=== PATIENT | male | born 1940 | race Caucasian/White ===

== ENCOUNTER 2016-03-07 10:43 | Day surgery (SDC) | payer MEDICARE ==
[~2016-03-07 10:43] MED LIST: AMLO5TAB96 PO; ASPI-130 PO; ATOR20TA PO; ATRO OP; DICY10CA13 PO; DIFL0.0512 OP; LOSA25TA31 PO; MAGN500T4 PO; MELO15 PO; METO25 PO; NORC10TA2 PO; OMEP20TA39 PO; PRED-1 PO; PROBCAP4 PO; SMZ-800T PO; STOO100T PO; VIGA0.5D RIGHT EYE
[2016-03-07 11:13] VITALS: BP 153/95; PULSE 72; RESP 16; TEMP 98; O2SAT 98
[2016-03-07] MEDS ORDERED: METOPROLOL TARTRATE 25 MG TAB PO PRN (11:15)
[2016-03-07] MEDS ORDERED: INSULIN HUMAN REGULAR 1,000 UNITS/10 ML VIAL SQ PRN (11:15)
[2016-03-07] MEDS ORDERED: LACTATED RINGER'S 1000 ML IV SCH (11:15)
[2016-03-07] MEDS ORDERED: SODIUM CHLORID 0.9% 500 ML IV SCH (11:15)
[2016-03-07] MEDS ORDERED: CHLORHEXIDINE GLUCONATE 2 % 1 PACK (2 CLOTHS) TOP SCH (11:15)
[2016-03-07] MEDS ORDERED: NS 1000 ML IV SCH (11:15)
[2016-03-07] MEDS ORDERED: MUPIROCIN 2% OINT 1 APPLIC/GM SYR NASAL SCH (11:15)
[2016-03-07] MEDS ORDERED: VANCOMYCIN 1000 MG/NS 250 ML IV SCH ×2 (11:15)
[2016-03-07] MEDS ORDERED: POVIDONE IODINE 5% (ANTISEPSIS KIT) 4 APPLICATIONS EACH NARE SCH (11:15)
[2016-03-07] MEDS ORDERED: AMLO5TAB2 PO (11:20)
[2016-03-07] MEDS ORDERED: MOBI15TA PO (11:20)
[2016-03-07] MEDS ORDERED: ASPI81CH CHEW (11:20)
[2016-03-07] MEDS ORDERED: BENA10TA PO (11:20)
[2016-03-07] MEDS ORDERED: METO25TA3 PO (11:20)
[2016-03-07] MEDS ORDERED: PRIL20CA9 PO (11:20)
[2016-03-07] MEDS ORDERED: LACTCAP8 PO (11:20)
[2016-03-07] MEDS ORDERED: PRED20 PO (11:20)
[2016-03-07 11:35] LABS: AUTOMATED NEUTROPHIL # 5.9 TH/MM3 (1.8-7.7); BASOPHIL # 0.1 TH/MM3 (0-0.2); BASOPHIL % 0.9 % (0.0-2.0); EOSINOPHIL # 0.2 TH/MM3 (0-0.4); EOSINOPHIL % 2.9 % (0.0-4.0); HEMATOCRIT 44.5 % (39.0-51.0); HEMO FLAGS DIFF FINAL; LYMPHOCYTE # 1.5 TH/MM3 (1.0-4.8); MEAN CELL VOLUME 92.1 FL (80.0-100.0); MEAN CORPUSCULAR HEMOGLOBIN 30.6 PG (27.0-34.0); MEAN CORPUSCULAR HGB CONC 33.2 % (32.0-36.0); MONO % 12.2 % (0.0-8.0); PLATELET COUNT 308 TH/MM3 (150-450); RED BLOOD COUNT 4.82 MIL/MM3 (4.50-5.90); RED CELL DISTRIBUTION WIDTH 14.2 % (11.6-17.2); WHITE BLOOD COUNT 8.7 TH/MM3 (4.0-11.0)
[2016-03-07 11:41] LABS: APTT (PATIENT) 27.3 SEC (24.3-30.1); PROTHROMBIN TIME - PATIENT 10.7 SEC (9.8-11.6)
[2016-03-07 11:45] LABS: BICARBONATE 29.1 MEQ/L (21.0-32.0); POTASSIUM 4.2 MEQ/L (3.5-5.1)
[2016-03-07] MEDS ORDERED: VANCOMYCIN 500 MG VIAL ONE (12:50)
[2016-03-07] MEDS ORDERED: LEVOFLOXACIN 500 MG PREMIX INJ 100 ML IV ONE (12:51)
[2016-03-07] MEDS ORDERED: LIDOCAINE HCL 2% 50 ML VIAL ONE (12:51)
[2016-03-07] MEDS ORDERED: PROPOFOL 200 MG/20 ML AMP IV ONE (14:00)
[2016-03-07] MEDS ORDERED: SODIUM CHLORIDE 0.9% FLUSH 5 ML FLUSH IVF SCH (21:00)
--- NOTE | 2016-03-08 09:15 | MP ---
cc: HAILEE HODGES M.D., BHADRESH M.D. DATE OF SURGERY: 03/07/2016 PROCEDURE: Dual chamber ICD generator change. INDICATIONS FOR PROCEDURE: Pulse generator LIBRADO CONSENT: Full informed consent was obtained today prior to the procedure. The risks of , bleeding, perforation, aspiration, pneumothorax, foreseen and unforeseen complications reviewed. The patient fully appeared to understand. PROCEDURE The patient was prepped and the left infraclavicular area was carefully infiltrated with lidocaine anesthesia was given as per the Anesthesia Department, using blunt and sharp and cautery dissection. The pulse generator pocket was opened in the usual manner. Some scar tissue was freed using the plasma knife. The pocket was flushed with vancomycin solution. The old pulse generator was removed. The new pulse was connected to the old leads the new pulse generator was checked by the [employer] rep and found to be totally acceptable. The leads were placed in and the set screws tightened but not over tightened prior to placement in the pocket. The pocket was flushed with vancomycin solution. The pocket was closed. CONCLUSION Successful change out of pulse generator. PLAN: We will plan to discharge the patient later today and follow up in my office in due course. We will follow up with Dr. Eliecer Jordan. Hailee Hodges MD, FRCP,FACC SUE/alonzo /2:29 PM /9:10 AM
--- NOTE | 2016-03-08 14:48 | EKG ---
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
== END 2016-03-07 17:23 | disposition home or self-care (01) ==
LOC: HDOC 10:43 → HDIC 10:43 → HDOC 17:23
PROVIDERS: ATTEND Internal Medicine Cardiovascular Disease
DX: Z45.02 Encounter for adjustment and management of automatic implantable cardiac defibrillator (principal); I49.5 Sick sinus syndrome; I45.2 Bifascicular block; I25.5 Ischemic cardiomyopathy; I47.2 Ventricular tachycardia; I25.10 Atherosclerotic heart disease of native coronary artery without angina pectoris; I49.9 Cardiac arrhythmia, unspecified; I42.9 Cardiomyopathy, unspecified; I10 Essential (primary) hypertension; E78.5 Hyperlipidemia, unspecified; Z79.82 Long term (current) use of aspirin; E87.8 Other disorders of electrolyte and fluid balance, not elsewhere classified
CPT/HCPCS: 33249; 80048; 85025; 85610; 85730; 93005; C1721; J1956; J3010; J3370